=== PATIENT | female | born 1960 | race Caucasian/White ===

== ENCOUNTER → 2023-06-05 10:55 | Outpatient (BNVA) | payer MEDICAID, SELFPAY | PROVIDERS: PCP Obstetrics & Gynecology; Visit Provider Internal Medicine Rheumatology | DX: Z79.899 Other long term (current) drug therapy (principal); M19.90 Unspecified osteoarthritis, unspecified site; Z11.59 Encounter for screening for other viral diseases; R76.8 Other specified abnormal immunological findings in serum; M45.6 Ankylosing spondylitis lumbar region; Z11.1 Encounter for screening for respiratory tuberculosis; M47.896 Other spondylosis, lumbar region | CPT/HCPCS: 36415; 72100; 72202; 73562; 80076; 82306; 82565; 83520; 85025; 85651; 86140; 86160; 86162; 86235; 86255; 86376; 86480; 86704; 86800; 86803; 86812; 87340 ==

== ENCOUNTER → 2023-09-16 11:29 | Outpatient (BNVA) | payer MEDICAID, SELFPAY | PROVIDERS: PCP Obstetrics & Gynecology; Visit Provider Internal Medicine Rheumatology | DX: Z79.899 Other long term (current) drug therapy; Z71.85 Encounter for immunization safety counseling; M06.041 Rheumatoid arthritis without rheumatoid factor, right hand; M06.042 Rheumatoid arthritis without rheumatoid factor, left hand | CPT/HCPCS: 99214 ==